=== PATIENT | female | born 1990 | race African-American/Black ===

== ENCOUNTER 2024-05-18 18:03 | Emergency (ER) | payer MEDICAID ==
[~2024-05-18] VITALS: Ht 180.3 cm; Wt 127.0 kg
[2024-05-18 18:48] VITALS: O2SAT 100
[2024-05-18 19:40] LABS: CLARITY URINE CLEAR (CLEAR); COLOR URINE YELLOW (YELLOW); GLUCOSE URINE NEGATIVE (NEGATIVE); KETONES URINE NEGATIVE (NEGATIVE); LEUKOCYTE ESTERASE URINE 2+ (NEGATIVE); NITRITE URINE NEGATIVE (NEGATIVE); OCCULT BLOOD URINE 2+ (NEGATIVE); PH URINE 5.5 (4.5-8.0); PROTEIN URINE NEGATIVE (NEGATIVE); SPECIFIC GRAVITY URINE 1.008 (1.005-1.030); UROBILINOGEN URINE 0.2 E.U./dL (0.2-1.0)
[2024-05-18] MEDS: KETOROLAC 30MG/ML VIAL IM ONE (19:54)
[2024-05-18 20:43] LABS: BACTERIA URINE 1+; SQUAMOUS EPITHELIAL CELL URINE FEW /lpf (RARE/1+)
[2024-05-18 20:45] VITALS: PULSE 98
[2024-05-18] MEDS ORDERED: NITR-87 MT (21:06)
[2024-05-18] MEDS: NITROFURANTOIN 100MG M/M CAPSULE PO ONE (21:15)
[2024-05-18 21:23] VITALS: BP 138/98; RESP 18; TEMP 98.3
== END 2024-05-18 21:30 | disposition home or self-care (01) ==
LOC: ER 18:03
DX: N39.0 Urinary tract infection, site not specified (principal); Z98.890 Other specified postprocedural states
CPT/HCPCS: 99285; 81003; 81025; 87086; 87186; 87077; 96372; J1885

== ENCOUNTER 2024-10-04 15:25 | Emergency (ER) | payer MEDICAID ==
[~2024-10-04] VITALS: Ht 180.3 cm; Wt 129.0 kg
[~2024-10-04 15:25] MED LIST: NITR-87 MT
[2024-10-04 15:28] VITALS: O2SAT 99
[2024-10-04 15:47] VITALS: BP 182/114; PULSE 100; RESP 16; TEMP 98; O2SAT 100
[2024-10-04] MEDS ORDERED: BACITRACIN 14GM TUBE TOP ONE (16:00)
[2024-10-04] MEDS ORDERED: BO1 TP (16:38)
[2024-10-04] MEDS ORDERED: ACET-2708 MT (16:38)
[2024-10-04] MEDS ORDERED: BACITRACIN 14GM TUBE TOP NR (18:00)
== END 2024-10-04 20:08 | disposition left against medical advice (07) ==
LOC: ER 15:25
DX: T24.201A Burn of second degree of unspecified site of right lower limb, except ankle and foot, initial encounter (principal); Z98.890 Other specified postprocedural states; X10.2XXA Contact with fats and cooking oils, initial encounter; Y93.89 Activity, other specified; Y92.89 Other specified places as the place of occurrence of the external cause; Y99.8 Other external cause status
CPT/HCPCS: 16020; 99282

== ENCOUNTER 2025-02-04 07:31 | Emergency (ER) | payer MEDICAID ==
[~2025-02-04] VITALS: Ht 180.3 cm; Wt 104.3 kg
[~2025-02-04 07:31] MED LIST changes: +ACET-2708 MT; +BO1 TP
[2025-02-04 07:37] VITALS: O2SAT 100
[2025-02-04] MEDS: ACETAMINOPHEN 325MG TABLET PO ONE (09:00)
[2025-02-04] MEDS ORDERED: ACET-2708 MT (09:25)
[2025-02-04] MEDS ORDERED: FLUT16SP15 BOTHNSTRLS (09:25)
[2025-02-04] MEDS ORDERED: SUMA50TA16 MT (09:25)
[2025-02-04] MEDS ORDERED: AMOX1TAB16 MT (09:25)
[2025-02-04 09:40] LABS: HCG SCREEN NEGATIVE
[2025-02-04] MEDS: ACETAMINOPHEN 1000MG/100ML 100 ML IV ONE (09:48)
[2025-02-04] MEDS: METOCLOPRAMIDE HCL 10MG/2ML VIAL IV ONE (09:48)
[2025-02-04] MEDS: LACTATED RINGERS 1,000 ML IV SCH (09:48)
[2025-02-04 11:05] VITALS: BP 148/95; PULSE 95; RESP 18; TEMP 36.7; O2SAT 100
== END 2025-02-04 11:07 | disposition home or self-care (01) ==
LOC: ER 07:31
DX: R51.9 Headache, unspecified (principal); H93.11 Tinnitus, right ear; Z79.899 Other long term (current) drug therapy; Z98.890 Other specified postprocedural states
CPT/HCPCS: 76512; 84703; 70450; 96365; 96375; 99285; J2765; Z7610 ×3; J0131